=== PATIENT | female | born 1980 | race Caucasian/White ===

== ENCOUNTER 2018-10-28 18:45 | Emergency (ER) | payer BC, OTHER ==
[2018-10-28 19:37] VITALS: BP 119/83
[2018-10-28] MEDS ORDERED: Ibuprofen ADULT LIQ* 600 MG/30 ML UDC PO ONE (20:22)
--- NOTE | 2018-10-28 20:22 | UC ---
General HPI - HPI Summary HPI Summary: PT SLIPPED ON A WET SURFACE AND LANDED ON HER R KNEE CAP WHILE AT WORK TONIGHT. SHE IS C/O PAIN OVER THE KNEE CAP. SELF TX WITH ICE. - History of Current Complaint Chief Complaint: UCLowerExtremity Stated Complaint: RIGHT KNEE INJURY Time Seen by Provider: 10/28/18 20:03 Hx Obtained From: Patient Hx Last Menstrual Period: IMPLANON Onset/Duration: Sudden Onset Timing: Constant Pain Intensity: 6 Associated Signs & Symptoms: Negative: Weakness - Allergy/Home Medications Allergies/Adverse Reactions: Allergies Allergy/AdvReac Type Severity Reaction Status Date / Time lidocaine Allergy Swelling Verified 10/28/18 19:32 procaine [From Novocain] Allergy Swelling Verified 10/28/18 19:32 bee sting Allergy Difficulty Uncoded 10/28/18 19:30 Breathing Home Medications: Home Medications Etonogestrel [Nexplanon] 1 implant ONCE 10/28/18 [History Confirmed 10/28/18] PMH/Surg Hx/FS Hx/Imm Hx Previously Healthy: Yes - Surgical History Surgical History: None - Family History Known Family History: Positive: Non-Contributory - Social History Occupation: Employed Full-time Alcohol Use: Weekly Alcohol Amount: 6 Substance Use Type: Cocaine, Excessive Caffeine, Marijuana Substance Use Comment - Amount & Last Used: marijuana; cocaine weekly Smoking Status (MU): Heavy Every Day Tobacco Smoker Type: Cigarettes Amount Used/How Often: 1/2 PPD Length of Time of Smoking/Using Tobacco: 10 YRS Review of Systems All Other Systems Reviewed And Are Negative: Yes Musculoskeletal: Positive: Other: - PAIN OVER R KNEE Neurological: Negative: Weakness, Paresthesia, Numbness Physical Exam Triage Information Reviewed: Yes Appearance: Well-Appearing Vital Signs: Initial Vital Signs Temp 98.5 F 10/28/18 19:33 Pulse 73 10/28/18 19:33 Resp 16 10/28/18 19:33 BP 119/83 10/28/18 19:33 Pulse Ox 98 10/28/18 19:33 Respiratory: Positive: No respiratory distress Cardiovascular: Positive: RRR Musculoskeletal: Positive: Other: - RLE: HIP NON TENDER. ANTERIOR KNEE WITH SLIGHT SWELLING AND VERY SUPERFICIAL ABRASION. TENDER OVER THE KNEE CAP BUT NO CREPITATION OF INSTABILITY. NO LIGAMENT LAXITY AND ACTIVE ROM IS INTACT. ACHILLES, ANKLE AND FOOT NON TENDER. FOOT HAS GROSS S/V/M FUNCTION. Neurological: Positive: Alert Psychological: Positive: Age Appropriate Behavior Skin Exam: Normal Diagnostics - Radiology No standard instances Radiology Interpretation Completed By: ED Physician - L KNEE=NAD Course/Dx - Course Course Of Treatment: PT NOTES KNEE IMPROVED WITH THE ICE. JAVIER WRAP DECLINED BY PT. NO LAXITY THUS IMMOBILIZER NOT INDICATED. - Diagnoses Provider Diagnosis: Contusion of right knee, Abrasion of right knee Discharge - Sign-Out/Discharge Documenting (check all that apply): Patient Departure All imaging exams completed and their final reports reviewed: No - Discharge Plan Condition: Stable Disposition: HOME Patient Education Materials: Contusion in Adults (ED), Abrasion (ED) Referrals: Keyon Contreras MD [Medical Doctor] - Additional Instructions: FOLLOW UP WITH DR CONTRERAS IF NOT BETTER IN 3-5 DAYS OR SOONER IF WORSE. - Billing Disposition and Condition Condition: STABLE Disposition: Home
== END 2018-10-28 20:33 | disposition home or self-care (01) ==
LOC: UCCORT 18:45
DX: S80.01XA Contusion of right knee, initial encounter (principal); S80.211A Abrasion, right knee, initial encounter; Z88.0 Allergy status to penicillin; Z91.030 Bee allergy status; Z88.6 Allergy status to analgesic agent; F17.210 Nicotine dependence, cigarettes, uncomplicated; W01.0XXA Fall on same level from slipping, tripping and stumbling without subsequent striking against object, initial encounter; Y92.9 Unspecified place or not applicable; Y99.0 Civilian activity done for income or pay
CPT/HCPCS: 99202; A9270-GY; G0463